=== PATIENT | male | born 1980 | race Two or more races ===

== ENCOUNTER 2016-08-02 15:30 | Inpatient (IN) | payer OTHER ==
[2016-08-02 17:04] VITALS: BMI 21.4
[2016-08-02] MEDS ORDERED: chlordiazePOXIDE HCL 25 MG CAPSULE PO PRN (19:38)
[2016-08-02] MEDS ORDERED: hydrOXYzine PAMOATE 50 MG CAPSULE (FP) PO PRN (19:38)
[2016-08-02] MEDS ORDERED: IBUPROFEN 400 MG TABLET (FP) PO PRN (19:38)
[2016-08-02] MEDS ORDERED: MAGNESIUM CITRATE 300 ML BOTTLE PO PRN (19:38)
[2016-08-02] MEDS ORDERED: diphenhydrAMINE HCL 50 MG CAPSULE PO PRN (19:38)
[2016-08-02] MEDS ORDERED: MAG HYDROX/AL HYDROX/SIMETH 30 ML UNIT-DOSE CUP PO PRN (19:38)
[2016-08-02] MEDS ORDERED: P-EPHED 60MG/TRIPROLIDI 2.5MG TABLET PO PRN (19:38)
[2016-08-02] MEDS ORDERED: ACETAMINOPHEN 325 MG TABLET (FP) PO PRN (19:38)
[2016-08-02] MEDS ORDERED: MAGNESIUM HYDROX 2400MG/30ML ORAL SUSPENSION 30 ML CUP PO PRN (19:38)
[2016-08-02] MEDS ORDERED: MENTHOL/PHENOL 1 EACH UD MM PRN (19:38)
[2016-08-02] MEDS ORDERED: guaiFENesin/D-METHORPHAN HB 10 ML UNIT-DOSE CUPS PO PRN (19:38)
[2016-08-02] MEDS ORDERED: LOPERAMIDE HCL 2 MG CAPSULE PO PRN (19:38)
[2016-08-02] MEDS ORDERED: NICOTINE POLACRILEX 2 MG GUM BC PRN (19:38)
--- NOTE | 2016-08-02 19:40 | HP ---
CIWA Score - CIWA Score Nausea/Vomitin-Mild Nausea/No Vomiting Muscle Tremors: 4-Moderate,w/Arms Extend Anxiety: 4-Mod. Anxious/Guarded Agitation: 4-Moderately Restless Paroxysmal Sweats: 1-Minimal Palms Moist Orientation: 0-Oriented Tacttile Disturbances: 0-None Auditory Disturbances: 0-None Visual Disturbances: 0-None Headache: 1-Very Mild CIWA-Ar Total Score: 15 Admission ROS BHS - HPI Chief Complaint: WITHDRAWAL SX Allergies/Adverse Reactions: Allergies Allergy/AdvReac Type Severity Reaction Status Date / Time No Known Allergies Allergy Verified 08/02/16 18:00 History of Present Illness: 35 YEARS OLD MALE WITH LONG HISTORY OF ALCOHOL NICOTINE DEPENDENCE HAS DEPRESSION IS ADMITTED TO DETOX Exam Limitations: No Limitations - Ebola screening Have you traveled outside of the country in the last 21 days: No Have you had contact with anyone from an Ebola affected area: No Have you been sick,other than usual withdrawal symptoms: No Do you have a fever: No - Review of Systems Constitutional: Chills, Loss of Appetite, Changes in sleep, Unintentional Wgt. Loss, Unexplained wgt Loss EENT: reports: No Symptoms Reported Respiratory: reports: No Symptoms reported Cardiac: reports: No Symptoms Reported GI: reports: No Symptoms Reported : reports: No Symptoms Reported Musculoskeletal: reports: No Symptoms Reported Integumentary: reports: No Symptoms Reported Neuro: reports: Tremors Endocrine: reports: No Symptoms Reported Hematology: reports: No Symptoms Reported Psychiatric: reports: Judgement Intact, Orientated x3, Depressed Other Systems: Reviewed and Negative Patient History - Patient Medical History Hx Anemia: No Hx Asthma: No Hx Chronic Obstructive Pulmonary Disease (COPD): No Hx Cancer: No Hx Cardiac Disorders: No Hx Congestive Heart Failure: No Hx Hypertension: No Hx Hypercholesterolemia: No Hx Pacemaker: No HX Cerebrovascular Accident: No Hx Seizures: No Hx Dementia: No Hx Diabetes: No Hx Gastrointestinal Disorders: No Hx Liver Disease: No Hx Genitourinary Disorders: No Hx Sexually Transmitted Disorders: No Hx Renal Disease (ESRD): No Hx Thyroid Disease: No Hx Human Immunodeficiency Virus (HIV): No (2013 negative last) Hx Hepatitis C: No Hx Depression: Yes Hx Suicide Attempt: Yes (tried to cut himself in 2014) Hx Bipolar Disorder: No Hx Schizophrenia: No - Patient Surgical History Past Surgical History: Yes Hx Neurologic Surgery: No Hx Cataract Extraction: No Hx Cardiac Surgery: No Hx Lung Surgery: No Hx Breast Surgery: No Hx Breast Biopsy: No Hx Abdominal Surgery: No Hx Appendectomy: No Hx Cholecystectomy: No Hx Genitourinary Surgery: No Hx Orthopedic Surgery: Yes (FX LT ELBOW AT 11 YRS OF AGE) Anesthesia Reaction: No - PPD History Previous Implant?: Yes Documented Results: Negative w/o proof Implanted On Prior [facility] Admission?: Yes Date: 10/02/14 Results: 0 mm PPD to be Administered?: No - Smoking Cessation Smoking history: Current every day smoker Have you smoked in the past 12 months: Yes Aproximately how many cigarettes per day: 4 Cigars Per Day: 0 Hx Chewing Tobacco Use: No Initiated information on smoking cessation: Yes 'Breaking Loose' booklet given: 08/02/16 - Substance & Tx. History Hx Alcohol Use: Yes Hx Substance Use: Yes Substance Use Type: Alcohol, Marijuana Hx Substance Use Treatment: Yes - Substances Abused Alcohol Route: Oral Frequency: Daily Amount used: 1 pint vodka Age of first use: 22 Date of Last Use: 08/01/16 Marijuana/Hashish Route: Smoking Frequency: 1-3 times last 30 days Amount used: 1 joint Age of first use: 22 Date of Last Use: 08/01/16 Family Disease History - Family Disease History Family Disease History: Other: Father (ALCOHOL), Mother (alcohol), Brother ( alcohol), Sister (alcohol) Admission Physical Exam S - Vital Signs Vital Signs: Vital Signs - 24 hr 08/02/16 17:02 Temperature 97.7 F Pulse Rate 74 Respiratory 18 Rate Blood Pressure 128/64 - Physical General Appearance: Yes: Appropriately Dressed, Mild Distress, Thin, Tremorous, Irritable, Sweating, Anxious HEENTM: Yes: Hearing grossly Normal, Normal ENT Inspection, Normocephalic, Normal Voice Respiratory: Yes: Chest Non-Tender, Lungs Clear, Normal Breath Sounds, No Respiratory Distress, No Accessory Muscle Use Neck: Yes: Supple, Trachea in good position Breast: Yes: Breasts Symetrical Cardiology: Yes: Regular Rhythm, Regular Rate, S1, S2 Abdominal: Yes: Non Tender, Soft Genitourinary: Yes: Within Normal Limits Back: Yes: Normal Inspection Musculoskeletal: Yes: full range of Motion, Gait Steady Extremities: Yes: Normal Inspection, Normal Range of Motion, Non-Tender, Tremors Neurological: Yes: Fully Oriented, Alert, Motor Strength 5/5, Normal Response, Depressed Affect Integumentary: Yes: Warm Lymphatic: Yes: Within Normal Limits - Diagnostic (1) Depression Current Visit: Yes Status: Suspected Qualifiers: Depression Type: dysthymia Qualified Code(s): F34.1 - Dysthymic disorder (2) Weight loss Current Visit: Yes Status: Acute (3) Alcohol dependence with uncomplicated withdrawal Current Visit: Yes Status: Acute (4) Nicotine dependence Current Visit: Yes Status: Acute Qualifiers: Nicotine product type: cigarettes Substance use status: in withdrawal Qualified Code(s): F17.213 - Nicotine dependence, cigarettes, with withdrawal Cleared for Admission [facility] - Detox or Rehab [facility] Level of Care: Medically Managed Detox Regimen/Protocol: Librium [facility] Breath Alcohol Content Breath Alcohol Content: 0 Urine Drug Screen - Results Drug Screen Negative: No Urine Drug Screen Results: THC-Marijuana
[2016-08-02] MEDS: chlordiazePOXIDE HCL 25 MG CAPSULE PO SCH (22:28)
[2016-08-02] MEDS: THIAMINE HCL 100 MG TABLET (FP) PO SCH (22:28)
[2016-08-02 23:08] LABS: URINE APPEARANCE CLEAR; URINE BILIRUBIN NEGATIVE (NEGATIVE); URINE BLOOD NEGATIVE (NEGATIVE); URINE COLOR YELLOW; URINE GLUCOSE (UA) NEGATIVE (NEGATIVE); URINE KETONE NEGATIVE (NEGATIVE); URINE LEUK ESTERASE NEGATIVE (NEGATIVE); URINE NITRITE NEGATIVE (NEGATIVE); URINE PROTEIN NEGATIVE (NEGATIVE); URINE UROBILINOGEN NEGATIVE E.U./dl (0.2-1.0)
[2016-08-03] MEDS: chlordiazePOXIDE HCL 25 MG CAPSULE PO SCH ×4 (05:23→22:26)
[2016-08-03] MEDS: PRENATAL VITAMINS W/ FOLIC ACID TABLET (FP) PO SCH (09:55)
[2016-08-03] MEDS: NICOTINE 14 MG/24 HOURS TOPICAL PATCH TD SCH (10:19)
[2016-08-03 10:21] LABS: ALBUMIN 3.9 g/dl (3.4-5.0); ALK PHOS 54 U/L (45-117); ANION GAP 6 (8-16); BILIRUBIN,TOTAL 0.4 mg/dL (0.2-1.0); CALCIUM 9.1 mg/dL (8.5-10.1); CO2 28 mmol/L (21-32); COCKROFT - GAULT 100.89; GLUCOSE,RANDOM 76 mg/dL (74-106); SGOT/AST 10 U/L (15-37); SGPT/ALT 17 U/L (12-78); TOT PROT 6.8 g/dl (6.4-8.2)
[2016-08-03 10:30] LABS: MCH 30.6 pg (25.7-33.7); MCHC 33.7 g/dl (32.0-35.9); MEAN PLT VOLUME 7.9 fl (7.5-11.1); PLATELET COUNT 206 K/MM3 (134-434); RDW 12.8 % (11.9-15.9); WHITE BLOOD COUNT 6.3 K/mm3 (4.0-10.0)
--- NOTE | 2016-08-03 11:26 | CONSULT ---
[facility] Psychiatric Consult - Data Date of interview: 08/03/16 Admission source: [facility] Identifying data: Another admission to [facility] for this 35 y/o AA male seeking detox treatment on for alcohol and cannabis dependence.Patient is single without children,domiciled,unemployed and deprived of any source of income.. Substance Abuse History: - Smoking Cessation. Smoking history: Current every day smoker. Have you smoked in the past 12 months: Yes. Aproximately how many cigarettes per day: 4. Cigars Per Day: 0. Hx Chewing Tobacco Use: No. Initiated information on smoking cessation: Yes. 'Breaking Loose' booklet given : 08/02/16. - Substance & Tx. History. Hx Alcohol Use: Yes. Hx Substance Use : Yes. Substance Use Type: Alcohol, Marijuana. Hx Substance Use Treatment: Yes. - Substances Abused. Alcohol. Route: Oral. Frequency: Daily. Amount used: 1 pint vodka. Age of first use: 22. Date of Last Use: 08/01/16. Marijuana/Hashish. Route: Smoking. Frequency: 1-3 times last 30 days. Amount used: 1 joint. Age of first use: 22. Date of Last Use: 08/01/16. Confirmed by patient. Medical History: Seizure disorder. Psychiatric History: Early onset of psychiatric disturbances (age 11).First psychiatric hospitalization was at [facility] for more than 4 months (suicide attempt,at age 11,via hanging).Also known to [facility] and [facility].Diagnosed with ADHD in childhood.Used to be on ritalin.Past history of treatment with SSRI medications and seroquel.Diagnosed with MDD and Anxiety Disorder.Lost to follow up for several months,as per self-report.Discharged from [facility] a month ago.Mr Hale reports being currently on zoloft 50 mg/day + trazodone 100 mg/hs.Patient indicates that he gets scripts only at discharge from psychiatric inpatient services. Physical/Sexual Abuse/Trauma History: Patient denies. Additional Comment: Urine Drug Screen Results: THC-Marijuana Mental Status Exam - Mental Status Exam Alert and Oriented to: Time, Place, Person Cognitive Function: Grossly Intact Patient Appearance: Unkempt, Disheveled Mood: Nervous, Withdrawn Affect: Blunted Patient Behavior: Sedated (light sedation), Fatigued, Cooperative Speech Pattern: Clear Voice Loudness: Moderately Soft/Quiet Thought Process: Goal Oriented Thought Disorder: Not Present Hallucinations: Denies Suicidal Ideation: Denies Homicidal Ideation: Denies Insight/Judgement: Poor Sleep: Poorly, Difficulty falling asleep (self-report) Appetite: Good Muscle strength/Tone: Normal Gait/Station: Normal Psychiatric Findings - Problem List ([place] 1, 2,3) (1) Alcohol dependence with uncomplicated withdrawal Current Visit: Yes Status: Acute (2) Cannabis dependence Current Visit: Yes Status: Acute (3) Nicotine dependence Current Visit: Yes Status: Acute Qualifiers: Nicotine product type: cigarettes Substance use status: in withdrawal Qualified Code(s): F17.213 - Nicotine dependence, cigarettes, with withdrawal (4) Drug-induced mood disorder Current Visit: Yes Status: Acute (5) Depressive disorder Current Visit: Yes Status: Chronic (6) Insomnia Current Visit: Yes Status: Acute (7) Low back pain Current Visit: Yes Status: Chronic Qualifiers: Chronicity: chronic (8) PPD positive, treated Current Visit: Yes Status: Chronic (9) Seizure Current Visit: No Status: Suspected Qualifiers: Convulsion type: unspecified Qualified Code(s): R56.9 - Unspecified convulsions - Initial Treatment Plan Initial Treatment Plan: Psychoeducation.Detoxification in progress.Medications : zoloft 50 mg po daily + trazodone 100 mg po hs.Side effects/benefits discussed with the patient.Made aware,in particular of potential for suicidal ideation/sexual dysfunction (sertraline) and priapism (trazodone).Patient agrees with this careplan.Observation.
--- NOTE | 2016-08-03 11:59 | EKG ---
Test Reason : Blood Pressure : / mmHG Vent. Rate : 060 BPM Atrial Rate : 060 BPM P-R Int : 180 ms QRS Dur : 102 ms QT Int : 422 ms P-R-T Axes : 044 076 061 degrees QTc Int : 422 ms NORMAL SINUS RHYTHM VOLTAGE CRITERIA FOR LEFT VENTRICULAR HYPERTROPHY ABNORMAL ECG NO PREVIOUS ECGS AVAILABLE Confirmed by ECHO KWONG MD ([id number]) on 08/03/2016 11:59:29 AM Referred By: Confirmed By:ECHO KWONG MD
[2016-08-03] MEDS: SERTRALINE HCL 50 MG TABLET (FP) PO SCH (14:20)
--- NOTE | 2016-08-03 14:59 | PN ---
[facility] CIWA - CIWA Score Nausea/Vomitin-No Nausea/No Vomiting Muscle Tremors: 4-Moderate,w/Arms Extend Anxiety: 4-Mod. Anxious/Guarded Agitation: 3 Paroxysmal Sweats: 3 Orientation: 0-Oriented Tacttile Disturbances: 0-None Auditory Disturbances: 0-None Visual Disturbances: 0-None Headache: 0-None Present CIWA-Ar Total Score: 14 S Progress Note (SOAP) Subjective: Sweating,anxiety,tremors,interrupted sleep,restless Objective: 08/03/16 14:58 Vital Signs - 8 hr 08/03/16 08/03/16 09:25 13:09 Temperature 96.7 F L 97.7 F Pulse Rate 66 77 Respiratory 18 18 Rate Blood Pressure 119/82 107/75 Laboratory Last Values WBC 6.3 K/mm3 (4.0-10.0) 08/03/16 07:00 RBC 4.64 M/mm3 (4.00-5.60) 08/03/16 07:00 Hgb 14.2 GM/dL (11.7-16.9) 08/03/16 07:00 Hct 42.2 % (35.4-49) 08/03/16 07:00 MCV 91.0 fl (80-96) 08/03/16 07:00 MCHC 33.7 g/dl (32.0-35.9) 08/03/16 07:00 RDW 12.8 % (11.9-15.9) 08/03/16 07:00 Plt Count 206 K/MM3 (134-434) 08/03/16 07:00 MPV 7.9 fl (7.5-11.1) 08/03/16 07:00 Sodium 142 mmol/L (136-145) 08/03/16 07:00 Potassium 3.9 mmol/L (3.5-5.1) 08/03/16 07:00 Chloride 108 mmol/L (98-107) H 08/03/16 07:00 Carbon Dioxide 28 mmol/L (21-32) 08/03/16 07:00 Anion Gap 6 (8-16) L 08/03/16 07:00 BUN 17 mg/dL (7-18) D 08/03/16 07:00 Creatinine 1.0 mg/dL (0.7-1.3) 08/03/16 07:00 Creat Clearance w eGFR > 60 (>60) 08/03/16 07:00 Random Glucose 76 mg/dL (74-106) 08/03/16 07:00 Calcium 9.1 mg/dL (8.5-10.1) 08/03/16 07:00 Total Bilirubin 0.4 mg/dL (0.2-1.0) D 08/03/16 07:00 AST 10 U/L (15-37) L D 08/03/16 07:00 ALT 17 U/L (12-78) D 08/03/16 07:00 Alkaline Phosphatase 54 U/L (45-117) D 08/03/16 07:00 Total Protein 6.8 g/dl (6.4-8.2) 08/03/16 07:00 Albumin 3.9 g/dl (3.4-5.0) 08/03/16 07:00 Urine Color Yellow 08/02/16 22:01 Urine Appearance Clear 08/02/16 22:01 Urine pH 5.0 (5.0-8.0) 08/02/16 22:01 Ur Specific [place] 1.025 (1.005-1.025) 08/02/16 22:01 Urine Protein Negative (NEGATIVE) 08/02/16 22:01 Urine Glucose (UA) Negative (NEGATIVE) 08/02/16 22:01 Urine Ketones Negative (NEGATIVE) 08/02/16 22:01 Urine Blood Negative (NEGATIVE) 08/02/16 22:01 Urine Nitrite Negative (NEGATIVE) 08/02/16 22:01 Urine Bilirubin Negative (NEGATIVE) 08/02/16 22:01 Urine Urobilinogen Negative E.U./dl (0.2-1.0) 08/02/16 22:01 Ur Leukocyte Esterase Negative (NEGATIVE) 08/02/16 22:01 RPR Titer Nonreactive (NONREACTIVE) 08/03/16 07:00 labs noted Assessment: 08/03/16 14:58 Withdrawal sx. Plan: Continue detox
[2016-08-03] MEDS: traZODone HCL 100 MG TABLET (FP) PO SCH (22:26)
[2016-08-03] MEDS: THIAMINE HCL 100 MG TABLET (FP) PO SCH (22:26)
[2016-08-04] MEDS: chlordiazePOXIDE HCL 25 MG CAPSULE PO SCH ×3 (05:52→17:34)
[2016-08-04] MEDS: SERTRALINE HCL 50 MG TABLET (FP) PO SCH (10:26)
[2016-08-04] MEDS: PRENATAL VITAMINS W/ FOLIC ACID TABLET (FP) PO SCH (10:26)
[2016-08-04] MEDS: NICOTINE 14 MG/24 HOURS TOPICAL PATCH TD SCH (10:26)
--- NOTE | 2016-08-04 12:04 | PN ---
S CIWA - CIWA Score Nausea/Vomitin-No Nausea/No Vomiting Muscle Tremors: 4-Moderate,w/Arms Extend Anxiety: 3 Agitation: 3 Paroxysmal Sweats: 3 Orientation: 0-Oriented Tacttile Disturbances: 0-None Auditory Disturbances: 0-None Visual Disturbances: 0-None Headache: 0-None Present CIWA-Ar Total Score: 13 BHS Progress Note (SOAP) Subjective: Anxiety,tremors,sweating,interrupted sleep,restless. Objective: 08/04/16 12:03 Vital Signs - 8 hr 08/04/16 08/04/16 06:29 09:18 Temperature 96.4 F L Pulse Rate 90 57 L Respiratory 18 18 Rate Blood Pressure 104/65 107/70 Laboratory Tests 08/02/16 08/03/16 08/03/16 22:01 07:00 07:00 WBC 6.3 RBC 4.64 Hgb 14.2 Hct 42.2 MCV 91.0 MCHC 33.7 RDW 12.8 Plt Count 206 MPV 7.9 Sodium 142 Potassium 3.9 Chloride 108 H Carbon Dioxide 28 Anion Gap 6 L BUN 17 D Creatinine 1.0 Creat Clearance w eGFR > 60 Random Glucose 76 Calcium 9.1 Total Bilirubin 0.4 D AST 10 L D ALT 17 D Alkaline Phosphatase 54 D Total Protein 6.8 Albumin 3.9 Urine Color Yellow Urine Appearance Clear Urine pH 5.0 Ur Specific [place] 1.025 Urine Protein Negative Urine Glucose (UA) Negative Urine Ketones Negative Urine Blood Negative Urine Nitrite Negative Urine Bilirubin Negative Urine Urobilinogen Negative Ur Leukocyte Esterase Negative RPR Titer 08/03/16 07:00 WBC RBC Hgb Hct MCV MCHC RDW Plt Count MPV Sodium Potassium Chloride Carbon Dioxide Anion Gap BUN Creatinine Creat Clearance w eGFR Random Glucose Calcium Total Bilirubin AST ALT Alkaline Phosphatase Total Protein Albumin Urine Color Urine Appearance Urine pH Ur Specific [place] Urine Protein Urine Glucose (UA) Urine Ketones Urine Blood Urine Nitrite Urine Bilirubin Urine Urobilinogen Ur Leukocyte Esterase RPR Titer Nonreactive labs noted Assessment: 08/04/16 12:03 Withdrawal sx. Plan: Continue detox
[2016-08-04] MEDS: THIAMINE HCL 100 MG TABLET (FP) PO SCH (22:27)
[2016-08-04] MEDS: traZODone HCL 100 MG TABLET (FP) PO SCH (22:27)
[2016-08-04] MEDS: chlordiazePOXIDE 5 MG CAPSULE PO SCH (22:27)
[2016-08-05] MEDS: chlordiazePOXIDE 5 MG CAPSULE PO SCH ×3 (05:52→17:22)
[2016-08-05] MEDS: PRENATAL VITAMINS W/ FOLIC ACID TABLET (FP) PO SCH (10:11)
[2016-08-05] MEDS: SERTRALINE HCL 50 MG TABLET (FP) PO SCH (10:11)
[2016-08-05] MEDS: NICOTINE 14 MG/24 HOURS TOPICAL PATCH TD SCH (10:11)
--- NOTE | 2016-08-05 15:35 | PN ---
BHS Progress Note (SOAP) Subjective: Tremors, Body Aches, Sweating. Objective: PT. A & O X 2 (DISORIENTED ABOUT DAY / DATE). PT. OBSERVED AMBULATING ON UNIT. NO ACUTE DISTRESS. 08/05/16 15:33 Vital Signs Temperature 96.3 F L 08/05/16 10:20 Pulse Rate 75 08/05/16 10:20 Respiratory Rate 18 08/05/16 10:20 Blood Pressure 103/72 08/05/16 10:20 O2 Sat by Pulse Oximetry (%) Laboratory Tests 08/02/16 08/03/16 08/03/16 22:01 07:00 07:00 WBC 6.3 RBC 4.64 Hgb 14.2 Hct 42.2 MCV 91.0 MCHC 33.7 RDW 12.8 Plt Count 206 MPV 7.9 Sodium 142 Potassium 3.9 Chloride 108 H Carbon Dioxide 28 Anion Gap 6 L BUN 17 D Creatinine 1.0 Creat Clearance w eGFR > 60 Random Glucose 76 Calcium 9.1 Total Bilirubin 0.4 D AST 10 L D ALT 17 D Alkaline Phosphatase 54 D Total Protein 6.8 Albumin 3.9 Urine Color Yellow Urine Appearance Clear Urine pH 5.0 Ur Specific [place] 1.025 Urine Protein Negative Urine Glucose (UA) Negative Urine Ketones Negative Urine Blood Negative Urine Nitrite Negative Urine Bilirubin Negative Urine Urobilinogen Negative Ur Leukocyte Esterase Negative RPR Titer 08/03/16 07:00 WBC RBC Hgb Hct MCV MCHC RDW Plt Count MPV Sodium Potassium Chloride Carbon Dioxide Anion Gap BUN Creatinine Creat Clearance w eGFR Random Glucose Calcium Total Bilirubin AST ALT Alkaline Phosphatase Total Protein Albumin Urine Color Urine Appearance Urine pH Ur Specific [place] Urine Protein Urine Glucose (UA) Urine Ketones Urine Blood Urine Nitrite Urine Bilirubin Urine Urobilinogen Ur Leukocyte Esterase RPR Titer Nonreactive LABS NOTED. Assessment: 08/05/16 15:34 WITHDRAWAL SYMPTOMS. Plan: CONTINUE DETOX.
[2016-08-05] MEDS: THIAMINE HCL 100 MG TABLET (FP) PO SCH (22:37)
[2016-08-05] MEDS: traZODone HCL 100 MG TABLET (FP) PO SCH (22:37)
[2016-08-05] MEDS: chlordiazePOXIDE HCL 10 MG CAPSULE PO SCH (22:37)
[2016-08-06] MEDS: chlordiazePOXIDE HCL 10 MG CAPSULE PO SCH (05:34)
[2016-08-06 06:11] VITALS: BP 112/66; PULSE 78; TEMP 96.7
[2016-08-06] MEDS: SERTRALINE HCL 50 MG TABLET (FP) PO SCH (09:17)
[2016-08-06] MEDS: PRENATAL VITAMINS W/ FOLIC ACID TABLET (FP) PO SCH (09:17)
[2016-08-06] MEDS: NICOTINE 14 MG/24 HOURS TOPICAL PATCH TD SCH (09:18)
--- NOTE | 2016-08-06 14:33 | DS ---
[facility] Detox Discharge Summary Admission Date: 08/02/16 Discharge Date: 08/06/16 - History Present History: Alcohol Dependence, Cannabis Dependence Additional Comments: ADVISED PATIENT TO FOLLOW-UP WITH [facility] AFTER DISCHARGE FROM DETOX FOR GENERAL MEDICAL ASSESSMENT. Pertinent Past History: Depression. - Physical Exam Results Vital Signs: Vital Signs Temperature 96.7 F L 08/06/16 06:11 Pulse Rate 78 08/06/16 06:11 Respiratory Rate 16 08/06/16 06:11 Blood Pressure 112/66 08/06/16 06:11 O2 Sat by Pulse Oximetry (%) Pertinent Admission Physical Exam Findings: WITHDRAWAL SYMPTOMS. Laboratory Tests 08/02/16 08/03/16 08/03/16 22:01 07:00 07:00 WBC 6.3 RBC 4.64 Hgb 14.2 Hct 42.2 MCV 91.0 MCHC 33.7 RDW 12.8 Plt Count 206 MPV 7.9 Sodium 142 Potassium 3.9 Chloride 108 H Carbon Dioxide 28 Anion Gap 6 L BUN 17 D Creatinine 1.0 Creat Clearance w eGFR > 60 Random Glucose 76 Calcium 9.1 Total Bilirubin 0.4 D AST 10 L D ALT 17 D Alkaline Phosphatase 54 D Total Protein 6.8 Albumin 3.9 Urine Color Yellow Urine Appearance Clear Urine pH 5.0 Ur Specific [place] 1.025 Urine Protein Negative Urine Glucose (UA) Negative Urine Ketones Negative Urine Blood Negative Urine Nitrite Negative Urine Bilirubin Negative Urine Urobilinogen Negative Ur Leukocyte Esterase Negative RPR Titer 08/03/16 07:00 WBC RBC Hgb Hct MCV MCHC RDW Plt Count MPV Sodium Potassium Chloride Carbon Dioxide Anion Gap BUN Creatinine Creat Clearance w eGFR Random Glucose Calcium Total Bilirubin AST ALT Alkaline Phosphatase Total Protein Albumin Urine Color Urine Appearance Urine pH Ur Specific [place] Urine Protein Urine Glucose (UA) Urine Ketones Urine Blood Urine Nitrite Urine Bilirubin Urine Urobilinogen Ur Leukocyte Esterase RPR Titer Nonreactive LABS NOTED. - Treatment Hospital Course: Detox Protocol Followed, Detoxed Safely, Responded well, Discharged Condition Good Patient has Accepted a Rehab Referral to: [facility] / AA OUTPATIENT PROGRAMS RECOMMENDED. - Medication Discharge Medications: Ambulatory Orders Sertraline HCl [Zoloft -] 50 mg PO DAILY 08/02/16 Trazodone HCl [Desyrel -] 100 mg PO HS 08/02/16 Sertraline HCl [Zoloft -] 50 mg PO DAILY #30 tablet 08/03/16 Trazodone HCl 50 mg PO HS #30 tablet 08/03/16 - Diagnosis (1) Alcohol dependence with uncomplicated withdrawal Status: Acute (2) Drug-induced mood disorder Status: Acute (3) Insomnia Status: Acute Qualifiers: Insomnia type: unspecified Qualified Code(s): G47.00 - Insomnia, unspecified (4) Nicotine dependence Status: Chronic Qualifiers: Nicotine product type: cigarettes Substance use status: in withdrawal Qualified Code(s): F17.213 - Nicotine dependence, cigarettes, with withdrawal (5) Weight loss Status: Acute (6) Cannabis dependence Status: Acute (7) PPD positive, treated Status: Chronic (8) Seizure Status: Suspected Qualifiers: Convulsion type: unspecified Qualified Code(s): R56.9 - Unspecified convulsions - AMA Did Patient Leave Against Medical Advice: No
== END 2016-08-06 09:43 | disposition home or self-care (01) | DRG 775 ==
LOC: YASAS 15:30 → Y3N 19:29
PROVIDERS: ADMIT Internal Medicine; ATTEND Internal Medicine
PROC: HZ2ZZZZ Detoxification Services for Substance Abuse Treatment (ICD-10-PCS; principal; 2016-08-06)
DX: F10.230 Alcohol dependence with withdrawal, uncomplicated (principal); F12.20 Cannabis dependence, uncomplicated; F17.213 Nicotine dependence, cigarettes, with withdrawal; F19.24 Other psychoactive substance dependence with psychoactive substance-induced mood disorder; F32.9 Major depressive disorder, single episode, unspecified; R63.4 Abnormal weight loss; Z68.21 Body mass index [BMI] 21.0-21.9, adult; R76.11 Nonspecific reaction to tuberculin skin test without active tuberculosis; M54.5 Low back pain; G89.29 Other chronic pain
CPT/HCPCS: 36415; 80053; 81003; 85027; 86593; 93005; 93010